=== PATIENT | female | born 1960 | race African-American/Black ===

== ENCOUNTER 2019-06-08 20:05 | Emergency (ER) | payer OTHER ==
[~2019-06-08] VITALS: Ht 162.6 cm; Wt 108.9 kg
[2019-06-08] MEDS ORDERED: HYDROcodone/Acetamin 7.5/325 tab ORAL ONE (20:45)
[2019-06-08] MEDS ORDERED: Ketorolac 30mg Inj IM ONE (20:45)
--- NOTE | 2019-06-08 20:47 | Emergency Room Report ---
History of Present Illness General Chief Complaint: Pain Source: Patient Present Illness HPI Disclaimer: Please note that this report is being documented using DRAGON technology. This can lead to erroneous entry secondary to incorrect interpretation by the dictating instrument. HPI: 59-year-old female with a history of osteoporosis presents for evaluation of right hip pain. The patient states she is try to get into a small cart. A day when she heard a sudden pop in the right hip and instant pain. Pain is out of proportion to her typical osteoarthritis. There was no trauma, fall or impact injury. Denies any weakness in the lower extremity, loss of sensation, saddle anesthesia, urinary incontinence. She has no pain in the lower back. She is able to bear weight and ambulate though is very painful for her. Denies any prior history of hip fracture, prosthesis or prior hip surgery. No other injury sustained. PMH: Osteoarthritis PSH: Denies surgeries Allergies: Denies allergies Social Hx: Denies tobacco, alcohol or drug use Allergies: Coded Allergies: No Known Allergies (Unverified , 06/08/19) Nursing Documentation-PMH Past Medical History: No History, Except For Hx Hypertension: Yes Hx Diabetes: Yes Hx Neurological Problems: No - ARTHRITIS Review of Systems All Other Systems: negative except mentioned in HPI Physical Exam Vital Signs Date Time Temp Pulse Resp B/P (MAP) Pulse Ox O2 Delivery O2 Flow Rate FiO2 06/08/19 20:36 98.4 89 18 147/96 (113) 98 Room Air General: Awake and alert, appears moderately uncomfortable, lying prone on the bed HEENT: NC/AT. EOMI. Resp: Normal work of breathing Skin: Intact. No abrasions, laceration or rash over the exposed skin MSK: Normal tone and bulk. Moving all extremities. No obvious deformity. Pelvis is stable. No obvious deformity. Leg length is equal. Tenderness to palpation over the right hip over the lateral, anterior and posterior aspect. No tenderness in the left hip. Range of motion difficult to assess given significant pain on active and passive range of motion testing. No tenderness, swelling, overlying skin changes at the knee, ankle. Full range of motion at the knee and ankle. Neuro: Awake and alert. Mentating appropriately. The dermatomes of the lower extremities are intact to light touch Medical Decision Making Diagnostic Impression: Primary Impression: Right hip pain ER Course 59-year-old female presents for evaluation of right-sided hip pain today after a twisting injury trying to get into a car. Differential includes was not limited to dislocation, fracture, strain, ligamentous injury, worsening of her chronic arthritis. Will give pain medications and sent for a hip and pelvis x- ray series to rule out occult fracture or dislocation. Otherwise, the patient can be discharged home to follow-up with her PMD with crutches and weightbearing as tolerated. Other X-Ray Diagnostic Results Other X-Ray Diagnostic Results : X-Ray ordered: Right hip # of Views/Limited Vs Complete: 3 View Indication: Pain EP Interpretation: Yes Interpretation: no dislocation, no soft tissue swelling, no fractures Impression: No acute disease Electronically Signed by: Electronically signed by Dr. Tariq Ledbetter Reevaluation Time: 21:45 Last Vital Signs Date Time Temp Pulse Resp B/P (MAP) Pulse Ox O2 Delivery O2 Flow Rate FiO2 06/08/19 20:36 98.4 89 18 147/96 (113) 98 Room Air Reevaluation Impression No evidence of fracture dislocation on x-ray. Patient was treated for her pain in the emergency department. She was offered crutches however states she would rather use the cane that she has and is able to ambulate safely with it. At this time do not see indication for further imaging or work-up in the emergency department. She can follow-up with her PMD. Discussed reasons to return to the emergency department. She understands and agrees with this treatment plan. Disposition: HOME, SELF-CARE Condition: Stable Scripts Acetaminophen* (ACETAMINOPHEN 325MG TABLET*) 325 Mg Tablet 650 MG ORAL Q6H PRN for For Pain for 7 Days, #30 TAB Prov: Tariq Ledbetter MD 06/08/19 Ibuprofen* (MOTRIN*) 600 Mg Tablet 600 MG ORAL Q8H PRN for For Pain, #30 TAB 0 Refills Prov: Tariq Ledbetter MD 06/08/19 Tariq Ledbetter MD Jun 08, 2019 20:47
[2019-06-08 20:50] VITALS: BP 147/96
--- NOTE | 2019-06-08 21:39 | Diagnostic Imaging Report ---
Indication: Pain, status post fall Technique: One view the pelvis, 2 views of the right hip Comparison: none Findings: Exam is very limited due to body habitus. No definite acute fractures. No dislocations. The joint spaces are preserved Impression: Limited; no definite acute bony trauma This agrees with the preliminary interpretation provided overnight by [facility] service.
[2019-06-08] MEDS ORDERED: ACETAMINOPHEN325 M1 ORAL (21:44)
[2019-06-08] MEDS ORDERED: IBUPROFEN600 MG ORAL (21:44)
[2019-06-08 21:55] VITALS: BP 133/78
== END 2019-06-08 21:55 | disposition home or self-care (01) ==
LOC: EMR 20:51
DX: M25.551 Pain in right hip (principal); M19.90 Unspecified osteoarthritis, unspecified site; I10 Essential (primary) hypertension; E11.9 Type 2 diabetes mellitus without complications
CPT/HCPCS: 73510; 96372; J1885; Z7502; 99283